=== PATIENT | female | born 1975 | race Hispanic/Latino ===

== ENCOUNTER 2020-04-05 10:50 | Emergency (ER) | payer BC ==
[~2020-04-05] VITALS: Ht 147.3 cm; Wt 65.8 kg
[2020-04-05] MEDS ORDERED: ZOFRAN4 MG PO (11:09)
[2020-04-05] MEDS ORDERED: ONDANSETRON HCL 4 MG ORAL DISINTEGRATING TAB PO ONE (11:15)
[2020-04-05] MEDS ORDERED: ONDANSETRON HCL 4 MG ORAL DISINTEGRATING TAB ONE (11:15)
== END 2020-04-05 11:20 | disposition home or self-care (01) ==
LOC: ER 11:20
DX: R05 Cough (principal); R42 Dizziness and giddiness; R11.2 Nausea with vomiting, unspecified; R53.83 Other fatigue
CPT/HCPCS: 99283; Q0162